=== PATIENT | female | born 1940 | race Caucasian/White ===

== ENCOUNTER 2017-08-08 11:46 | Observation (INO) ==
[2017-08-08] MEDS ORDERED: Aspirin 81 MG TAB.CHEW PO ONE (11:50)
--- NOTE | 2017-08-08 11:53 | Emergency Department Note ---
Disposition Clinical Impression: Chest pain Qualifiers: Chest pain type: unspecified Qualified Code(s): R07.9 - Chest pain, unspecified Disposition: Admitted As Inpatient Condition: Fair Forms: ED Satisfaction Letter Time of Disposition: 13:28 Chest Pain HPI - General Chief Complaint: ED Chest Pain Stated Complaint: Chest pain Time Seen by Provider: 08/08/17 11:50 Source: patient, EMS Mode of arrival: EMS Limitations: no limitations Vital Signs Reviewed: Yes Nursing Notes Reviewed: Yes - History of Present Illness HPI Narrative: 77-year-old who comes in complaining of recurrent chest pain over the last day. Says it aches in her left shoulder and her jaw. Patient had an HI in the past has had no recent cardiac workup. Pt complaint: chest pain Onset (ago): Just [employer] Duration: intermittent Onset: during rest Pain Location: substernal, left chest Severity: moderate Quality: tightness, heaviness Pain Radiation: LUE, jaw/teeth Improves with: nothing Worsens with: nothing Associated symptoms: Reports: other (Extremity edema) Treatments prior to arrival chest pain: aspirin - Related Data Home Medications Medication Instructions Recorded Confirmed Albuterol Neb [Proventil Neb] 2.5 mg IH Q4-6H PRN 09/15/15 08/08/17 Albuterol Sulfate [Albuterol 2 puff IH DAILY 09/15/15 08/08/17 Inhaler] Aspirin Enteric Coated [Aspirin EC] 81 mg PO DAILY 09/15/15 08/08/17 Atorvastatin [Lipitor] 10 mg PO DAILY 09/15/15 08/08/17 Gabapentin [Neurontin] 300 mg PO TID 09/15/15 08/08/17 LORazepam [Ativan] 0.5 mg PO DAILY 09/15/15 08/08/17 Levothyroxine [Synthroid] 50 mcg PO QAM 09/15/15 08/08/17 Loratadine [Claritin] 10 mg PO DAILY 09/15/15 08/08/17 Losartan/HCTZ [Hyzaar 50-12.5 1 each PO DAILY 09/15/15 08/08/17 Tablet] Montelukast [Singulair] 10 mg PO DAILY 09/15/15 08/08/17 Oxybutynin [Ditropan] 5 mg PO TID 09/15/15 08/08/17 Triamterene/Hydrochlorothiazid 1 each PO DAILY PRN 09/15/15 08/08/17 [Dyazide 37.5-25 Capsule] Fluticasone Propionate Nasal 2 spr NS DAILY PRN 10/26/15 08/08/17 [Flonase] Previous Rx's Medication Instructions Recorded PredniSONE [Deltasone] 20 mg PO DAILY #15 tablet 07/20/16 Phenazopyridine HCl [Pyridium] 200 mg PO TID #6 tab 04/11/17 Allergies Allergy/AdvReac Type Severity Reaction Status Date / Time No Known Allergies Allergy Verified 08/08/17 10:20 All systems ED: reviewed and negative except as stated. Constitutional: Denies: fever, chills, weakness, weight change Eyes: Denies: eye pain, eye discharge, vision change ENT ED: Denies: ear pain, throat pain, dental pain, hearing loss, epistaxis, congestion, dysphagia Cardiovascular: Reports: chest pain. Denies: palpitations, dyspnea on exertion , edema, syncope Respiratory: Denies: cough, dyspnea, wheezes, hemoptysis, stridor Gastrointestinal: Denies: abdominal pain, nausea, vomiting, diarrhea, constipation, hematemesis, melena, hematochezia Genitourinary: Denies: dysuria, frequency, hematuria, discharge Musculoskeletal: Denies: back pain, neck pain, arthralgia, myalgia Integumentary: Denies: rash, abrasion, lesions Neurological: Denies: headache, weakness, numbness, paresthesias, confusion, abnormal gait, vertigo Psychiatric: Denies: anxiety, depression, suicidal thoughts, homicidal thoughts , auditory hallucinations, visual hallucinations Endocrine: Denies: fatigue Hematological/Lymphatic: Denies: easy bleeding, easy bruising Allergic/Immunologic: Denies: facial swelling, urticaria Chest Pain PMH - Past Medical History Medical history: Reports: COPD, hypertension Psychiatric history: Reports: no psych history - Social History Smoking Status: Never smoker Alcohol use: Reports: none Drug use: Reports: none Physical Exam - General Limitations: no limitations General appearance: alert, in no apparent distress - Head Head exam: atraumatic, normocephalic, normal inspection - Eye Eye exam: Present: normal appearance, PERRL, EOMI - ENT ENT exam: normal exam, normal oropharynx, mucous membranes moist - Neck Neck exam: Present: normal inspection, full ROM, trachea midline - Chest Chest inspection: Present: normal inspection, symmetric chest wall rise - Respiratory Respiratory exam: Present: normal lung sounds bilaterally - Cardiovascular Cardiovascular exam: Present: regular rate, normal rhythm, normal heart sounds - Abdominal Exam Abdominal exam: Present: soft, Non-Tender. Absent: tenderness, distention, guarding, rebound, rigidity - Extremities Exam Extremities exam: Present: normal inspection, full ROM. Absent: tenderness, pedal edema - Expanded Lower Extremity Exam Neurovascular/Tendon exam: Absent: motor deficit, sensory deficit, tendon deficit Gait: observed and normal - Back Exam Back exam: Present: normal inspection, full ROM. Absent: tenderness - Neurological Exam Neurological exam: Present: alert, oriented X3. Absent: motor sensory deficit - Psychiatric Psychiatric exam: Present: normal affect, normal mood - Skin Skin exam: Present: warm, dry, intact, normal color Course - Reevaluation(s) Reevaluation #1: 77-year-old female who has a history of HI back in 1995 comes in complaining some intermittent chest pain. All troponin is negative chest x-ray is clear patient will be admitted for further evaluation and treatment. Time: 13:27 - Consultations Consultation #1: Discussed with , admit. Time: 13:27 Vital Signs Temperature 97.7 F 08/08/17 11:48 Pulse Rate 67 08/08/17 11:48 Respiratory Rate 22 08/08/17 11:48 Blood Pressure 156/94 08/08/17 11:48 O2 Sat by Pulse Oximetry 99 08/08/17 11:48 Temperature 97.7 F 08/08/17 11:48 Pulse Rate 67 08/08/17 11:48 Respiratory Rate 22 08/08/17 11:48 Blood Pressure 156/94 08/08/17 11:48 O2 Sat by Pulse Oximetry 99 08/08/17 11:48 Oxygen Delivery Oxygen Delivery Nasal Cannula Chest Pain - Lab Data Result diagrams: 08/08/17 12:25 08/08/17 12:25 Lab Results 08/08/17 08/08/17 08/08/17 Range/Units 12:25 12:25 12:25 WBC 5.9 (4.3-11.1) K/mcL RBC 4.21 (3.82-4.97) M/mcL Hgb 12.9 (11.5-15.4) g/dL Hct 39.4 (35.3-44.9) % MCV 93.6 (83.0-100.0) fL MCH 30.6 (28.0-33.3) pg MCHC 32.7 (31.6-35.5) g/dL RDW 13.2 (11.5-14.5) % Plt Count 189 (140-400) K/mcL MPV 10.3 (9.4-12.4) fL Immature Gran % 0.7 (0-4) % Seg Neutrophils % 52.2 % Lymphocytes % 33.6 % Monocytes % 10.2 % Eosinophils % 2.4 % Basophils % 0.9 % Neutrophils # 3.1 (1.6-8.9) K/mcL Lymphocytes # 2.0 (0.6-4.6) K/mcL Monocytes # 0.6 (0.0-1.3) K/mcL Eosinophils # 0.1 (0.0-0.6) K/mcL Basophils # 0.1 (0.0-0.2) K/mcL PT 12.1 (9.4-12.1) Seconds INR 1.1 APTT 31.6 (26.0-36.0) Seconds Sodium 143 (136-145) mEq/L Potassium 4.1 (3.5-5.1) mEq/L Chloride 109 H (98-107) mEq/L Carbon Dioxide 27 (23-29) mEq/L BUN 14 (8-23) mg/dL Creatinine 0.79 (0.60-1.20) mg/dL Est GFR ( Amer) > 60 (> 60) Est GFR (Non-Af Amer) > 60 (> 60) BUN/Creatinine Ratio 18 (6-26) Glucose 104 (70-105) mg/dL Calculated Osmolality 297 (280-300) Calcium 9.6 (8.6-10.3) mg/dL Troponin I < 0.03 (< 0.04) ng/mL - EKG Data EKG attestation: Yes I reviewed and interpreted this EKG. EKG shows normal: sinus rhythm Rate: normal Rhythm: NSR Morton/QRS: normal Interpretation: no acute changes Heart Score - Score History: Moderately Suspicious EKG: Non Specific repolarisation Disturbance Age: Greater than 65 Risk Factors: Equal/Greater than 3 risk factor or history of atherosclerotic disease Troponin: Less than normal limit HEART Score Total: 6
[2017-08-08 12:35] LABS: Basophils # 0.1 K/mcL (0.0-0.2); Basophils % 0.9 %; Eosinophils # 0.1 K/mcL (0.0-0.6); Eosinophils % 2.4 %; Hematocrit 39.4 % (35.3-44.9); Hemoglobin 12.9 g/dL (11.5-15.4); Immature Granulocytes % 0.7 % (0-4); Lymphocytes % 33.6 %; Mean Corpuscular HGB Conc 32.7 g/dL (31.6-35.5); Mean Corpuscular Hemoglobin 30.6 pg (28.0-33.3); Mean Corpuscular Volume 93.6 fL (83.0-100.0); Mean Platelet Volume 10.3 fL (9.4-12.4); Monocytes # 0.6 K/mcL (0.0-1.3); Monocytes % 10.2 %; Neutrophils # 3.1 K/mcL (1.6-8.9); Platelet Count 189 K/mcL (140-400); Red Blood Count 4.21 M/mcL (3.82-4.97); Red Cell Distribution Width 13.2 % (11.5-14.5); Segmented Neutrophils % 52.2 %
[2017-08-08 12:40] LABS: INR 1.1; Prothrombin Time 12.1 Seconds (9.4-12.1)
[2017-08-08 12:43] LABS: Activated Partial Thrombo Time 31.6 Seconds (26.0-36.0)
[2017-08-08 13:01] LABS: Troponin I < 0.03 ng/mL (< 0.04)
[2017-08-08 13:07] LABS: BUN/Creatinine Ratio 18 (6-26); Blood Urea Nitrogen 14 mg/dL (8-23); Calcium 9.6 mg/dL (8.6-10.3); Carbon Dioxide 27 mEq/L (23-29); Chloride 109 mEq/L (98-107); Glucose 104 mg/dL (70-105); Osmolality,Calculated 297 (280-300); Potassium 4.1 mEq/L (3.5-5.1); Sodium 143 mEq/L (136-145); eGFR For African Americans > 60 (> 60); eGFR For Non-African Americans > 60 (> 60)
[2017-08-08] MEDS ORDERED: Acetaminophen 325 MG TABLET PO PRN (16:56)
[2017-08-08] MEDS ORDERED: *HR* HYDROcodone/Acet 5/325 mg TABLET PO PRN (16:56)
[2017-08-08] MEDS ORDERED: Naloxone 0.4 MG/ML INJ IVP PRN (16:56)
[2017-08-08] MEDS ORDERED: Albuterol 2.5 MG/3 ML NEBULIZER IH PRN (17:03)
[2017-08-08] MEDS ORDERED: XYZAL 5 MG PO SCH (17:15)
--- NOTE | 2017-08-08 17:18 | Electrocardiograph Report ---
[facility] Test Date: 2017-08-08 Pat Name: Rosalinda Amaral Department: [id number] Room: 3B45 Gender: F Masseur/Masseuse: [id number] : 1940 Requested By: Nick Arevalo Order Number: [id number] Reading MD: Mino Jimenez Measurements Intervals [place] Rate: 68 P: 2 IA: 195 QRS: -22 QRSD: 83 T: -8 QT: 385 QTc: 401 Interpretive Statements SINUS RHYTHM LOW QRS VOLTAGE IN PRECORDIAL LEADS POSSIBLE ANTERIOR MYOCARDIAL INFARCTION, PROBABLY OLD INFERIOR MYOCARDIAL INFARCTION, PROBABLY OLD Electronically Signed On 08-08-2017 17:16:57 EDT by Mino Jimenez
--- NOTE | 2017-08-08 17:19 | Electrocardiograph Report ---
[facility] Test Date: 2017-08-08 Pat Name: Rosalinda Amaral Department: 104 Room: 3B45 Gender: F Ultrasound Technol: JANN : 1940 Requested By: Nick Arevalo Order Number: [id number] Reading MD: Mino Jimenez Measurements Intervals [place] Rate: 65 P: -10 DC: 165 QRS: -20 QRSD: 85 T: -2 QT: 397 QTc: 409 Interpretive Statements SINUS RHYTHM LOW QRS VOLTAGE IN PRECORDIAL LEADS [QRS DEFLECTION < 1.0 mV IN CHEST LEADS] INFERIOR MYOCARDIAL INFARCTION [40+ ms Q WAVE AND/OR ST/T ABNORMALITY IN II/aVF], PROBABLY OLD Electronically Signed On 08-08-2017 17:18:13 EDT by Mino Jimenez
[2017-08-08] MEDS: Loratadine 10 MG TABLET PO SCH (17:41)
[2017-08-08] MEDS: amLODIPine 5 MG TABLET PO SCH (17:41)
[2017-08-08] MEDS: *HR* LORazepam 0.5 MG TABLET PO SCH (17:41)
[2017-08-08] MEDS: Gabapentin 400 MG CAPSULE PO SCH (20:29)
--- NOTE | 2017-08-08 21:13 | Internal Med History&Physical ---
Date of Encounter: 08/08/17 Time of Encounter: 15:07 Internal Medicine - H&P: HPI Chief complaint: Chest Pain Admitted From: Emergency Dept Plans for Post Hospital Care: Home History of present illness: Ms. Amaral is a 77 year old white female who presented to ED today for 1-day history of chest pain. She states that pain is located in her left upper chest , radiating to her left shoulder and jaw. She has a history of CAD, with [place] in 1995. She denies stents or open heart surgery. Other significant PMH includes HTN, COPD, and asthma. She denies SOB, fever, chills, nausea, vomiting, changes in bladder, or changes in bowels. She has no other complaints. Past Med Surg Social Fam HX - Past Medical History Attestation: Yes The following information was validated with the patient. Source: patient Medical history: asthma, COPD, hypertension Psychiatric history: no psych history - Past Surgical History Surgical History: no surgical history - Social History Smoking Status: Never smoker Smokeless Tobacco Status: Yes Alcohol use: none Drug use: none - Family History Brother Hx Family Cardiac Disorders: Yes Internal Medicine - H&P: Meds LORazepam [Ativan] 0.5 mg PO DAILY 09/15/15 [History] Loratadine [Claritin] 10 mg PO DAILY 09/15/15 [History] Montelukast [Singulair] 10 mg PO DAILY 09/15/15 [History] Atorvastatin Calcium [Lipitor] 20 mg PO HS 08/08/17 [History] Gabapentin [Neurontin] 400 mg PO TID 08/08/17 [History] Levothyroxine Sodium [Levo-T] 100 mcg PO 0630 08/08/17 [History] Losartan Potassium [Cozaar] 50 mg PO DAILY 08/08/17 [History] Tolterodine Tartrate [Detrol] 2 mg PO BID 08/08/17 [History] Xyzal 5 mg PO DAILY 08/08/17 [History] amLODIPine [Norvasc] 5 mg PO DAILY 08/08/17 [History] 3 Allergy/AdvReac Type Severity Reaction Status Date / Time No Known Allergies Allergy Verified 08/08/17 13:36 - Constitutional Constitutional: no anorexia, no chills, no fatigue, no fever(s), no lethargy, no malaise, no weakness, no weight gain, no weight loss - EENT Eyes: no blurry vision, no diplopia, no discharge, no loss of vision, no pain, no other visual disturbances Ears: no decreased hearing, no ear pain Nose, mouth and throat: no dry mouth, no dysphagia, no facial pain, no mouth lesions, no mouth pain, no nasal congestion, no nasal discharge, no sinus pain, no sore throat - Cardiovascular Cardiovascular ROS IM: no chest pain, no diaphoresis, no dyspnea, no dyspnea on exertion, no edema, no lightheadedness, no palpitations, no syncope - Respiratory Respiratory: no cough, no dyspnea, no hemoptysis, no dyspnea on exertion, no wheezing, no chest congestion - Gastrointestinal Gastrointestinal: no abdominal pain, no change in bowel habits, no constipation , no diarrhea, no dysphagia, no heartburn, no hematemesis, no hematochezia, no melena, no nausea, no vomiting - Genitourinary Genitourinary: no difficulty urinating, no dysuria, no hematuria, no urinary frequency - Musculoskeletal Musculoskeletal ROS IM: no arthralgias, no joint swelling, no muscle cramps, no muscle weakness, no myalgias, no stiffness - Integumentary Integumentary IM: no erythema, no rash, no skin ulcer, no jaundice - Neurological Neurological ROS: no abnormal hearing, no abnormal speech, no behavioral changes , no dizziness, no focal weakness, no headache(s), no vertigo, no weakness - Psychiatric Psychiatric: no anxiety, no behavioral changes, no confusion, no depression - Endocrine Endocrine IM: no cold intolerance, no fatigue, no heat intolerance, no polydipsia, no polyphagia, no polyuria - Constitutional Vitals: Temp Pulse Resp BP Pulse Ox 98.6 F 75 16 134/79 96 08/08/17 18:35 08/08/17 18:35 08/08/17 18:35 08/08/17 18:35 08/08/17 18:35 General appearance: Present: cooperative, A&O X 3, pleasant, no acute distress, answers questions appropriately - Head Head exam: Present: atraumatic, normocephalic - Eye Eye exam: Present: EOMI, PERRL. Absent: conjunctival injection, nystagmus, scleral icterus - ENT ENT exam: Present: mucous membranes moist, normal external ear exam, normal oropharynx - Neck Neck exam general surgery: Present: supple, trachea midline. Absent: lymphadenopathy, tenderness, thyromegaly - Respiratory Respiratory exam: Present: CTAB. Absent: accessory muscle use, rales, rhonchi, wheezes Additional comments: Normal WOB - Cardiovascular Cardiovascular exam: Present: RRR, +S1, +S2. Absent: diastolic murmur, gallop, rubs, systolic murmur Additional comments: No BLE edema - GI/Abdominal GI/Abdominal exam: Present: normal bowel sounds, soft. Absent: distended, hepatomegaly, mass, splenomegaly, tenderness - Neurological Exam Neurological exam: Present: alert, CN II-XII intact, oriented X3, no focal deficits, strengths equal and symetr throughout. Absent: facial droop, speech deficit - Psychiatric Psychiatric exam: Present: normal affect, normal mood. Absent: anxious, depressed - Skin Skin exam: Present: dry, intact, warm. Absent: cyanosis, rash Internal Med - H&P Results - Labs CBC & Chem 7: 08/09/17 04:38 08/09/17 04:38 Labs: Cardiac Enzymes 08/08/17 Range/Units 17:21 Troponin I < 0.03 (< 0.04) ng/mL - Assessment and plan (1) Chest pain Current Visit: Yes Status: Acute Assessment and plan: Admit for observation for ACS ruleout. Start telemetry. Start supplemental O2 PRN. Start SL nitro PRN. Start tylenol and norco PRN pain. Continue aspirin. Trend troponin x 3. Obtain ECHO. Repeat EKG in AM. Continue home medications for HTN and HLD. Repeat labwork, including lipid panel, in AM. Qualifiers: Chest pain type: other chest pain Qualified Code(s): R07.89 - Other chest pain; R07.8 - Other chest pain (2) CAD (coronary artery disease) Current Visit: Yes Status: Acute Assessment and plan: ACS ruleout as per above. Continue home medications. Qualifiers: Coronary Disease-Associated Artery/Lesion type: unspecified vessel or lesion type [place] vs. transplanted heart: unspecified whether [place] or transplanted heart Associated angina: angina presence unspecified Qualified Code(s): I25.10 - Atherosclerotic heart disease of [place] coronary artery without angina pectoris (3) HTN (hypertension) Current Visit: Yes Status: Acute Assessment and plan: Continue home medications. Qualifiers: Hypertension type: essential hypertension Qualified Code(s): I10 - Essential (primary) hypertension (4) HLD (hyperlipidemia) Current Visit: Yes Status: Acute Assessment and plan: Continue home medications. Obtain lipid panel in AM as per above. Qualifiers: Hyperlipidemia type: mixed hyperlipidemia Qualified Code(s): E78.2 - Mixed hyperlipidemia (5) COPD (chronic obstructive pulmonary disease) Current Visit: Yes Status: Acute Assessment and plan: Continue singulair. Start albuterol nebs Q4H PRN SOB. Qualifiers: COPD type: chronic bronchitis Chronic bronchitis type: unspecified Qualified Code(s): J42 - Unspecified chronic bronchitis (6) Asthma Current Visit: Yes Status: Chronic Assessment and plan: Start albuterol nebs PRN as per above. Qualifiers: Asthma severity: unspecified severity Asthma persistence: unspecified Asthma complication type: unspecified Qualified Code(s): J45.909 - Unspecified asthma, uncomplicated (7) DVT prophylaxis Current Visit: Yes Status: Acute Assessment and plan: Low risk and ambulatory. Start SCDs. - Time Spent With Patient Total time spent is greater than 50% in coordination of care (as documented) at patient's floor/unit and/or counseling patient: 25 - 35 minutes
[2017-08-09 05:04] LABS: Basophils # 0.1 K/mcL (0.0-0.2); Basophils % 0.8 %; Eosinophils # 0.2 K/mcL (0.0-0.6); Eosinophils % 2.9 %; Hematocrit 38.4 % (35.3-44.9); Hemoglobin 12.3 g/dL (11.5-15.4); Immature Granulocytes % 0.5 % (0-4); Lymphocytes # 1.9 K/mcL (0.6-4.6); Lymphocytes % 30.3 %; Mean Corpuscular Hemoglobin 29.9 pg (28.0-33.3); Mean Corpuscular Volume 93.4 fL (83.0-100.0); Mean Platelet Volume 10.5 fL (9.4-12.4); Monocytes # 0.6 K/mcL (0.0-1.3); Monocytes % 10.1 %; Neutrophils # 3.5 K/mcL (1.6-8.9); Platelet Count 182 K/mcL (140-400); Red Blood Count 4.11 M/mcL (3.82-4.97); Red Cell Distribution Width 13.1 % (11.5-14.5); Segmented Neutrophils % 55.4 %
[2017-08-09 05:22] LABS: BUN/Creatinine Ratio 20 (6-26); Blood Urea Nitrogen 18 mg/dL (8-23); Calcium 9.3 mg/dL (8.6-10.3); Carbon Dioxide 28 mEq/L (23-29); Chloride 108 mEq/L (98-107); Cholesterol 116 mg/dL (< 200); Glucose 105 mg/dL (70-105); HDL Cholesterol 29 mg/dL (40-59); LDL Cholesterol,Calculated 67 mg/dL (0-99); Osmolality,Calculated 296 (280-300); Sodium 142 mEq/L (136-145); Triglycerides 102 mg/dL (< 150); eGFR For African Americans > 60 (> 60); eGFR For Non-African Americans > 60 (> 60)
[2017-08-09] MEDS: Gabapentin 400 MG CAPSULE PO SCH (08:58)
[2017-08-09] MEDS: amLODIPine 5 MG TABLET PO SCH (08:58)
[2017-08-09] MEDS: Loratadine 10 MG TABLET PO SCH (08:59)
[2017-08-09] MEDS: *HR* LORazepam 0.5 MG TABLET PO SCH (08:59)
[2017-08-09 11:10] VITALS: BP 120/69
--- NOTE | 2017-08-09 13:37 | Discharge Summary ---
- NOTES TO OUTPATIENT PROVIDER Notes to Outpatient Provider: Recommend referral to cardiology for stress test Orders not resulted at time of discharge: Pending orders 08/09/17 06:00 ECG 12 lead ECG [ECG] AM 0600 Date of Encounter: 08/09/17 Time of Encounter: 13:35 - Discharge Diagnosis (1) Chest pain Priority: Primary Status: Resolved Qualifiers: Chest pain type: other chest pain Qualified Code(s): R07.89 - Other chest pain; R07.8 - Other chest pain (2) HTN (hypertension) Priority: Primary Status: Acute Qualifiers: Hypertension type: essential hypertension Qualified Code(s): I10 - Essential (primary) hypertension (3) HLD (hyperlipidemia) Priority: Primary Status: Acute Qualifiers: Hyperlipidemia type: mixed hyperlipidemia Qualified Code(s): E78.2 - Mixed hyperlipidemia (4) COPD (chronic obstructive pulmonary disease) Priority: Secondary Status: Chronic Qualifiers: COPD type: chronic bronchitis Chronic bronchitis type: unspecified Qualified Code(s): J42 - Unspecified chronic bronchitis (5) Asthma Priority: Secondary Status: Chronic Qualifiers: Asthma severity: unspecified severity Asthma persistence: unspecified Asthma complication type: unspecified Qualified Code(s): J45.909 - Unspecified asthma, uncomplicated (6) CAD (coronary artery disease) Priority: Primary Status: Acute Qualifiers: Coronary Disease-Associated Artery/Lesion type: unspecified vessel or lesion type [place] vs. transplanted heart: unspecified whether [place] or transplanted heart Associated angina: angina presence unspecified Qualified Code(s): I25.10 - Atherosclerotic heart disease of [place] coronary artery without angina pectoris Hospital course: Ms. Amaral is a 77 year old female with PMH CAD, hypertension, hyperlipidemia and COPD/asthma who [facility] with complaints of chest pain. She was placed in observation status for ACS rule out. Hospital course included serial negative troponin, EKG without acute ST changes. Echocardiogram showed EF 65%, no valvular or wall motion abnormalities. Chest pain resolved prior discharge. Offered inpatient stress test but patient preferred to follow up outpatient with her PCP for cardiology referral. Advised patient to return to ER if chest pain/SOB recurs. Patient verbalizes understanding. She was discharged home in stable condition with outpatient follow-up Discharge discussed with: patient (Seen and examined at bedside. Patient is new to me, information obtained from chart review and patient report. Says she feels better, back to baseline. No further chest pain. Denies shortness of breath. She would like to go home today. She does have history of CAD and has not had a recent stress test. I offered inpatient stress test to her however she prefers to follow-up with her PCP for cardiology referral. She reports some lower extremity edema and that is resolved with elevating her legs. Advised on low sodium diet. Patient advised to return to ER if chest pain/SOB recurs. She verbalizes understanding.) - Time Spent with Patient Total time spent providing and/or coordinating discharge services: - Discharge Medications Home Medications: LORazepam [Ativan] 0.5 mg PO DAILY 09/15/15 [History] Loratadine [Claritin] 10 mg PO DAILY 09/15/15 [History] Montelukast [Singulair] 10 mg PO DAILY 09/15/15 [History] Atorvastatin Calcium [Lipitor] 20 mg PO HS 08/08/17 [History] Gabapentin [Neurontin] 400 mg PO TID 08/08/17 [History] Levothyroxine Sodium [Levo-T] 100 mcg PO 0630 08/08/17 [History] Losartan Potassium [Cozaar] 50 mg PO DAILY 08/08/17 [History] Tolterodine Tartrate [Detrol] 2 mg PO BID 08/08/17 [History] Xyzal 5 mg PO DAILY 08/08/17 [History] amLODIPine [Norvasc] 5 mg PO DAILY 08/08/17 [History] Allergies/Adverse Reactions: 3 Allergy/AdvReac Type Severity Reaction Status Date / Time No Known Allergies Allergy Verified 08/08/17 13:36 Date of admission: 08/08/17 13:34 Primary care physician: Gavin Baez MD Discharging clinician: Trina Wilson Anticipated date of discharge: 08/09/17 - Constitutional Vitals: Temp Pulse Resp BP Pulse Ox 98 F 71 15 120/69 93 08/09/17 11:09 08/09/17 11:09 08/09/17 11:09 08/09/17 11:09 08/09/17 11:09 General appearance: Present: cooperative, A&O X 3, pleasant, no acute distress, answers questions appropriately - Head Head exam: Present: atraumatic, normocephalic - Eye Eye exam: Present: PERRL, conjuntiva pink, sclera anicteric Pupils: Present: PERRL - Neck Neck exam general surgery: Present: supple, trachea midline. Absent: lymphadenopathy - Respiratory Respiratory exam: Present: CTAB. Absent: accessory muscle use, rales, rhonchi, wheezes - Cardiovascular Cardiovascular exam: Present: RRR, +S1, +S2. Absent: diastolic murmur, gallop, rubs, systolic murmur - GI/Abdominal GI/Abdominal exam: Present: normal bowel sounds, soft, no peritoneal signs. Absent: distended, tenderness - Extremities Exam Extremities exam: Present: warm, radial pulses palpable and symmetrical. Absent : calf tenderness, cyanotic, pedal edema - Neurological Exam Neurological exam: Present: CN II-XII intact, oriented X3, no focal deficits. Absent: pronater drift, facial droop, speech deficit - Skin Skin exam: Present: dry, intact - Patient Status Disposition: Home, Self-Care Condition: Good Functional capacity at discharge: independent ambulation Overall status at discharge: patient is back to baseline - Discharge Instructions Instructions: Asthma (DC), Heart Healthy Diet (DC), Chronic Obstructive Pulmonary Disease (DC), Coronary Artery Disease (DC), Low Sodium Diet (DC), Edema (DC) Follow Up With: Gavin Baez MD [Primary Care Provider] - (hospital follow up web requested. office will call with date and time of appointment. ) - Diet and Activity Activity: increase activity as tolerated Diet: low fat, low cholesterol, low salt diet
== END 2017-08-09 14:43 | disposition home or self-care (01) ==
LOC: EMEROO 11:46 → 3BNU 11:46
PROVIDERS: ADMIT Family Medicine; ATTEND Family Medicine

== ENCOUNTER 2022-02-05 20:22 | Observation (INO) ==
[2022-02-06] MEDS ORDERED: cefTRIAXone 1,000 MG in 0.9 % Sodium Chloride 10 ML IVP ONE (02:38)
[2022-02-06] MEDS ORDERED: 0.9 % Sodium Chloride 1,000 ML IVC ONE (02:38)
[2022-02-06 03:16] LABS: Basophils % 0.2 %; Eosinophils % 0.2 %; Hematocrit 39.1 % (35.3-44.9); Hemoglobin 12.9 g/dL (11.5-15.4); Immature Granulocytes % 0.3 % (0-4); Lymphocytes # 2.6 K/mcL (0.6-4.6); Lymphocytes % 27.3 %; Mean Corpuscular Hemoglobin 30.9 pg (28.0-33.3); Mean Corpuscular Volume 93.5 fL (83.0-100.0); Mean Platelet Volume 11.2 fL (9.4-12.4); Monocytes # 1.3 K/mcL (0.0-1.3); Monocytes % 13.5 %; Neutrophils # 5.5 K/mcL (1.6-8.9); Platelet Count 165 K/mcL (140-400); Red Blood Count 4.18 M/mcL (3.82-4.97); Red Cell Distribution Width 13.2 % (11.5-14.5); Segmented Neutrophils % 58.5 %; White Blood Count 9.4 K/mcL (4.3-11.1)
[2022-02-06 03:23] LABS: INR 1.3; Prothrombin Time 14.6 Seconds (9.4-12.1)
[2022-02-06 03:51] LABS: Alanine Aminotransferase 138 Units/L (7-52); Albumin 3.7 g/dL (3.5-5.7); Albumin/Globulin Ratio 1.2 (1.1-2.2); Alkaline Phosphatase 96 Units/L (34-104); Amylase 51 Units/L (29-103); Aspartate Amino Transferase 118 Units/L (13-39); BUN/Creatinine Ratio 17 (6-26); Bilirubin,Direct 0.2 mg/dL (0.0-0.2); Bilirubin,Indirect 0.8 mg/dL (0.0-1.0); Blood Urea Nitrogen 16 mg/dL (8-23); Carbon Dioxide 24 mEq/L (23-29); Chloride 105 mEq/L (98-107); Glucose 117 mg/dL (70-105); Lipase 80 Units/L (11-82); Osmolality,Calculated 288 (280-300); Potassium 3.5 mEq/L (3.5-5.1); Sodium 138 mEq/L (136-145); Total Protein 6.7 g/dL (6.4-8.9); Troponin I < 0.03 ng/mL (< 0.04)
[2022-02-06 03:59] LABS: Clarity,Urine Hazy (Clear); Color,Urine Orange (Yellow)
[2022-02-06 04:09] LABS: Bacteria,Urine Moderate per hpf (None-Few); Squamous Epithelial Cell,Urine Few per hpf (None-Few); WBC,Urine 30-50 per hpf (0-3)
[2022-02-06] MEDS: Iopamidol - 370 500 ML MLS IVP ONE (04:55)
[2022-02-06] MEDS ORDERED: Naloxone 0.4 MG/ML INJ IVP PRN (05:33)
[2022-02-06] MEDS ORDERED: Melatonin 3 MG TABLET PO PRN (05:33)
[2022-02-06] MEDS ORDERED: Ondansetron ODT 4 MG TAB.RAPDIS SL PRN (05:33)
[2022-02-06] MEDS ORDERED: cefTRIAXone 1,000 MG in Water for inj. (sterile) 10 ML IVP ONE (05:37)
[2022-02-06] MEDS ORDERED: Ringers Solution, Lactated 1,000 ML IVC SCH (05:45)
[2022-02-06] MEDS: *HR* Heparin 5,000 UNIT/ML VIAL SQ SCH (17:57)
[2022-02-07] MEDS ORDERED: cefTRIAXone 2,000 MG in 0.9 % Sodium Chloride Mini Bag 100 ML IVPB SCH (05:00)
[2022-02-07] MEDS: *HR* Heparin 5,000 UNIT/ML VIAL SQ SCH (05:35)
[2022-02-07] MEDS: Iopamidol - 370 500 ML MLS IVP ONE (07:40)
[2022-02-07 10:36] VITALS: BP 134/77; PULSE 60; TEMP 97.2; O2SAT 97
[2022-02-07 11:15] LABS: Hematocrit 39.3 % (35.3-44.9); Hemoglobin 12.8 g/dL (11.5-15.4); Mean Corpuscular HGB Conc 32.6 g/dL (31.6-35.5); Mean Corpuscular Volume 95.2 fL (83.0-100.0); Mean Platelet Volume 10.9 fL (9.4-12.4); Platelet Count 155 K/mcL (140-400); Red Blood Count 4.13 M/mcL (3.82-4.97); Red Cell Distribution Width 13.2 % (11.5-14.5); White Blood Count 5.3 K/mcL (4.3-11.1)
[2022-02-07 11:45] LABS: Albumin 3.6 g/dL (3.5-5.7); Albumin/Globulin Ratio 1.2 (1.1-2.2); Bilirubin,Total 0.5 mg/dL (0.3-1.0); Calcium 8.9 mg/dL (8.6-10.3); Magnesium 1.8 mg/dL (1.6-2.6); Phosphorous 2.5 mg/dL (2.7-4.5); Potassium 3.6 mEq/L (3.5-5.1); Total Protein 6.6 g/dL (6.4-8.9)
== END 2022-02-07 14:22 | disposition home or self-care (01) ==
LOC: 3BNU 20:22 → EMEROOARM 20:22 → SUATTDRO 02-06 05:38 → 3BNU 02-06 05:55
PROVIDERS: ADMIT Internal Medicine; ATTEND Nurse Practitioner